=== PATIENT | male | born 1985 | race Caucasian/White ===

== ENCOUNTER → 2016-07-17 | Outpatient (CLI) | payer BC ==
--- NOTE | 2016-07-18 08:16 | REP ---
CHEST, TWO VIEWS: There is no evidence of acute infiltrate. No pleural effusion is seen. The heart is normal in size. The mediastinal silhouette is unremarkable. The visualized osseous structures are intact. IMPRESSION: No acute pulmonary disease. Signed by Samm Haley MD 07/18/2016 04:12 P
== END ==
LOC: M WUC 17:46
PROVIDERS: ATTEND Physician Assistant
DX: Z11.1 Encounter for screening for respiratory tuberculosis (principal)

== ENCOUNTER → 2016-07-25 | Outpatient (CLI) | payer BC | LOC: M LAB 10:48 | DX: R76.11 Nonspecific reaction to tuberculin skin test without active tuberculosis (principal) ==

== ENCOUNTER → 2019-10-24 | Outpatient (REF) | payer BC ==
[2019-10-24 11:29] LABS: SEMEN APPEARANCE OPAQUE (OPAQUE); SEMEN VISCOSITY VISCOUS (LIQUID); SEMEN VOLUME 2.5 ml (2.0-5.0); SPERM CONCENTRATION 35.8 M/ml (>=15.0); WBC CONCENTRATION >1 M/ml (<=1 M/ml)
== END ==
LOC: M SFHCWAGY 11:04
PROVIDERS: ATTEND Obstetrics & Gynecology
DX: Z98.52 Vasectomy status (principal)

== ENCOUNTER → 2024-02-08 | Outpatient (CLI) | payer OTHER | LOC: M RAD 10:11 | PROVIDERS: ATTEND Nurse Practitioner Family | DX: L72.9 Follicular cyst of the skin and subcutaneous tissue, unspecified (principal) ==

== ENCOUNTER → 2024-03-07 | Outpatient (REF) | payer OTHER | LOC: M LAB REF 16:16 | PROVIDERS: ATTEND Surgery | DX: L72.0 Epidermal cyst (principal) ==

== ENCOUNTER → 2024-04-01 | Outpatient (REF) | payer OTHER ==
[2024-04-01 18:24] LABS: BASO % 0.6 % (0.0-1.0); EOS # 0.5 10^3/uL (0.0-0.5); EOS % 7.1 % (0.0-3.0); HEMATOCRIT 41.9 % (42.0-52.0); HEMOGLOBIN 14.2 g/dl (13.5-17.5); LYMPH # 2.3 10^3/uL (1.5-5.0); LYMPH % 34.6 % (24.0-44.0); MEAN CORPUSCULAR HGB CONC 33.9 g/dl (32.0-36.5); MEAN CORPUSCULAR VOLUME 91.5 fl (80.0-96.0); MONO # 0.5 10^3/uL (0.0-0.8); MONO % 6.8 % (2.0-8.0); NEUTROPHILS # 3.4 10^3/uL (1.5-8.5); NEUTROPHILS % 50.6 % (36.0-66.0); PLATELET COUNT, AUTOMATED 239 10^3/uL (150-450); RED BLOOD COUNT 4.58 10^6/uL (4.30-6.10); WHITE BLOOD COUNT 6.7 10^3/uL (4.0-10.0)
[2024-04-01 18:48] LABS: THYROID STIMULATING HORMONE 3.237 uIU/ML (0.55-4.78)
[2024-04-01 18:49] LABS: TOTAL 25(OH) VITAMIN D 30.5 NG/ML (20.0-100.0)
[2024-04-01 18:50] LABS: ALBUMIN 3.9 G/DL (3.2-5.2); ALKALINE PHOSPHATASE 51 U/L (40-129); ALT/SGPT 25 U/L (7.0-40); AST/SGOT 14 U/L (<34); BILIRUBIN,TOTAL 0.4 MG/DL (0.3-1.2); BLOOD UREA NITROGEN 12 MG/DL (9-23); CALCIUM LEVEL 9.3 MG/DL (8.5-10.1); CARBON DIOXIDE LEVEL 28 MMOL/L (20-31); CHLORIDE LEVEL 106 MMOL/L (98-107); CHOLESTEROL LEVEL 199 MG/DL (<200); CHOLESTEROL RISK RATIO 3.84 (<5); GLOMERULAR FILTRATION RATE > 60.0 (>60); GLUCOSE, FASTING 120 MG/DL (60-100); HDL CHOLESTEROL 51.7 MG/DL (>40); LDL CHOLESTEROL 115.1 MG/DL (<100); NON-HDL-C 147.3 MG/DL; POTASSIUM SERUM 4.3 MMOL/L (3.5-5.1); SODIUM LEVEL 142 MMOL/L (136-145); TRIGLYCERIDES LEVEL 161 MG/DL (<150)
[2024-04-01 18:53] LABS: HEMOGLOBIN A1c 5.5 % (4.0-6.0)
== END ==
LOC: M LAB REF 16:39
PROVIDERS: ATTEND Nurse Practitioner Family
DX: E66.3 Overweight (principal); E55.9 Vitamin D deficiency, unspecified

== ENCOUNTER → 2024-09-27 | Outpatient (CLI) | payer OTHER | LOC: M RAD 15:02 | PROVIDERS: ATTEND Nurse Practitioner Family | DX: N50.3 Cyst of epididymis (principal) ==

== ENCOUNTER → 2025-04-16 | Outpatient (REF) | payer OTHER ==
[2025-04-16 15:20] LABS: ALT/SGPT 39 U/L (7.0-40); AST/SGOT 24 U/L (<34); CALCIUM LEVEL 8.8 MG/DL (8.5-10.1); CARBON DIOXIDE LEVEL 29 MMOL/L (20-31); CHLORIDE LEVEL 107 MMOL/L (98-107); CHOLESTEROL LEVEL 213 MG/DL (<200); CHOLESTEROL RISK RATIO 4.25 (<5); CREATININE FOR GFR 0.91 MG/DL (0.70-1.30); GLOMERULAR FILTRATION RATE > 90.0 (>60); LDL CHOLESTEROL 147.1 MG/DL (<100); NON-HDL-C 162.9 MG/DL; POTASSIUM SERUM 4.4 MMOL/L (3.5-5.1); SODIUM LEVEL 142 MMOL/L (136-145); TRIGLYCERIDES LEVEL 79 MG/DL (<150)
[2025-04-16 15:21] LABS: TOTAL 25(OH) VITAMIN D 27.2 NG/ML (20.0-100.0)
[2025-04-16 15:35] LABS: ESTIMATED AVERAGE GLUCOSE 114.0 MG/DL (60-110)
== END ==
LOC: M LAB REF 13:19
PROVIDERS: ATTEND Physician Assistant
DX: E55.9 Vitamin D deficiency, unspecified (principal); E66.3 Overweight; E78.00 Pure hypercholesterolemia, unspecified